=== PATIENT | female | born 2000 | race African-American/Black ===

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

== ENCOUNTER 2022-03-09 14:55 | Emergency (ER) | payer BC ==
[~2022-03-09] VITALS: Ht 157.5 cm; Wt 61.2 kg
[2022-03-09 17:11] LABS: Urine Bacteria FEW /hpf (None Seen); Urine Blood 1+ /uL (Negative); Urine Mucus MODERATE (None Seen); Urine Specific Gravity 1.025 (1.001-1.035); Urine WBC 4 /hpf (0 - 5)
[2022-03-09 17:22] LABS: Alcohol, Urine < 3.0 mg/dL (0-10); Amphetamine Screen, Urine NEGATIVE (NEGATIVE); Barbiturate Scree,Urine NEGATIVE (NEGATIVE); Benzodiazephine Screen, Urine NEGATIVE (NEGATIVE); Cannabinoid Screen, Urine POSITIVE (NEGATIVE); Cocaine Screen, Urine NEGATIVE (NEGATIVE); Phencyclidine Screen, Urine NEGATIVE (NEGATIVE)
[2022-03-09 17:30] LABS: Opiate Scree,Urine NEGATIVE (NEGATIVE)
[2022-03-09] MEDS ORDERED: NITR-87 PO (19:09)
[2022-03-09 20:49] VITALS: BP 110/74
== END 2022-03-09 20:54 | disposition home or self-care (01) ==
LOC: ER 14:55
DX: N39.0 Urinary tract infection, site not specified (principal)
CPT/HCPCS: 76830; 76856; 80307; 81001